=== PATIENT | male | born 1960 | race Caucasian/White ===

== ENCOUNTER 2017-05-04 15:38 | Emergency (ER) | payer SELFPAY ==
[2017-05-04 15:56] VITALS: BP 139/81
--- NOTE | 2017-05-04 16:27 | RAD ---
HISTORY: Right foot trauma, pain and swelling COMPARISONS: October 02, 2016 VIEWS: 3, Frontal, lateral, and oblique views of the right foot FINDINGS: BONE DENSITY: Normal. BONES: There is no displaced fracture. JOINTS: There is no arthropathy. ALIGNMENT: There is no dislocation. SOFT TISSUES: Unremarkable. OTHER FINDINGS: None. IMPRESSION: NO ACUTE OSSEOUS INJURY. IF SYMPTOMS PERSIST, RECOMMEND REPEAT IMAGING.
--- NOTE | 2017-05-04 16:49 | UC ---
reginald Banks Timothy, scribed for Annelise Lancaster MD on 05/04/17 at 1640 . Lower Extremity/Ankle HPI - HPI Summary HPI Summary: Jian Rivers is a 56 yo male presenting to [facility] with 10/10 sharp pain with palpation and swelling and redness between the 2nd and third toes on his right foot. Pt states 5 days ago was kicked on his foot by accident. Pt was barefoot and co-worked accidentally kicked him with wooden sandal 1 week ago. He noted some redness on the top of his foot progressive proximally. Warm to touch. No fevers, chills. + edema unable to wear shoe second to pain. He denies any cut of the skin. He denies fever, chills, N/V, immunosuppression. He denies Hx of MRSA. He self-medicated with ice and elevation, but notes that this caused the swelling to resolve but increased his pain. His MHx includes HTN. Pt medication list reviewed this visit. - History of Current Complaint Chief Complaint: UCLowerExtremity Stated Complaint: FOOT INJURY Time Seen by Provider: 05/04/17 16:32 Hx Obtained From: Patient Onset/Duration: Sudden Onset, Lasting Days, Still Present Severity Initially: Moderate Severity Currently: Moderate Pain Intensity: 10 - with palpation Pain Scale Used: 0-10 Numeric Aggravating Factor(s): Standing Alleviating Factor(s): Rest Able to Bear Weight: Yes - Risk Factors Gout Risk Factors: Age Over 40, Male - Allergies/Home Medications Allergies/Adverse Reactions: Allergies Allergy/AdvReac Type Severity Reaction Status Date / Time Kiwi Extract Allergy Unknown Verified 05/04/17 15:56 Reaction Details Latex Allergy Rash Verified 05/04/17 15:56 Pineapple Allergy Unknown Verified 05/04/17 15:56 Reaction Details Home Medications: Home Medications Amlodipine Besylate [Norvasc 10 mg tab] 10 mg PO DAILY 05/04/17 [History Confirmed 05/04/17] PMH/Surg Hx/FS Hx/Imm Hx Previously Healthy: Yes Cardiovascular History: Hypertension - Surgical History Surgical History: None - Family History Known Family History: Positive: Cardiac Disease - [place], Hypertension, Diabetes - Social History Occupation: Employed Full-time Lives: Alone Alcohol Use: Daily Substance Use Type: None Smoking Status (MU): Unknown if Ever Smoked Type: Smokeless Tobacco Review of Systems Constitutional: Negative Skin: Other - redness on the top of right foot Eyes: Negative ENT: Negative Respiratory: Negative Cardiovascular: Negative Gastrointestinal: Negative Genitourinary: Negative Motor: Negative Neurovascular: Negative Musculoskeletal: Other: - pain in RLE foot Neurological: Negative Psychological: Negative All Other Systems Reviewed And Are Negative: Yes Physical Exam Triage Information Reviewed: Yes Appearance: Well-Appearing, No Pain Distress Vital Signs: Initial Vital Signs Temp 98.8 F 05/04/17 15:52 Pulse 90 05/04/17 15:52 Resp 18 05/04/17 15:52 BP 139/81 05/04/17 15:52 Pulse Ox 100 05/04/17 15:52 Vital Signs Reviewed: Yes Eye Exam: Normal Eyes: Negative: Discharge ENT Exam: Normal ENT: Positive: Hearing grossly normal Neck exam: Normal Neck: Positive: Supple, Nontender Respiratory: Positive: Lungs clear, Normal breath sounds Cardiovascular: Positive: Other: - 2+ DP, PT Musculoskeletal: Positive: Other: - + SLE + flex/ext + flex/ext ankle Neurological Exam: Normal Neurological: Positive: Alert Psychological Exam: Normal Skin: Positive: Other - Additional Comments Right foot + erythema, warmth between 2/3 toes - extends to dorsum of foot. warm, well demarcated no open areas to skin although dryness between toes no crepitus, no induration Diagnostics - Radiology R foot XR Xray Interpretation: No Acute Changes - IMPRESSION: NO ACUTE OSSEOUS INJURY. IF SYMPTOMS PERSIST, RECOMMEND REPEAT IMAGING. Radiology Interpretation Completed By: Radiologist Lower Extremity Course/Dx - Course Course Of Treatment: Jian Rivers is a 56 yo male presenting to [facility] with 10/ 10 RLE foot pain with redness and swelling after being accidentally kicked in the foot one week ago while at work. Pt medication list reviewed this visit. His R foot XR suggests no acute osseus injury. - epsom salt soaks. elevate. doxy. motrin/apap. wound demarcated. recheck in 48 hours. return precautions discussed. Pt comfortable and in agreement with plan - Differential Dx/Diagnosis Differential Diagnosis/HQI/PQRI: Cellulitis Provider Diagnoses: RLE foot cellulitis Discharge - Discharge Plan Condition: Stable Disposition: HOME Prescriptions: DOXYcycline CAP(*) [DOXYcycline 100MG CAP(*)] 100 mg PO BID #20 cap Patient Education Materials: Cellulitis (ED), Crutch Instructions (ED) Forms: *Work Release Referrals: Yamel Dave MD [Primary Care Provider] - 1 Day Additional Instructions: - Soak your foot in epsom salt soaks for 20 minutes, 2-3 times a day - elevate your foot as much as possible to help with swelling and pain - take antibiotics as prescribed for pain - use crutches and support shoe until you can walk normally without a limp - you should have your wound rechecked in 2 days. REturn to urgent care of call your primary doctor - okay to alternate ibuprofen (advil, Motrin) and tylenol every 3 hours for pain - If you develop increased pain, swelling, fevers, red spreading - it is recommended you go to the emergency department for further testing and treatment The documentation as recorded by the reginald kim Timothy accurately reflects the service I personally performed and the decisions made by me, Annelise Lancaster MD.
== END 2017-05-04 17:04 | disposition home or self-care (01) ==
LOC: UCEAST 15:38
DX: L03.115 Cellulitis of right lower limb (principal); W50.1XXA Accidental kick by another person, initial encounter; Y93.9 Activity, unspecified; Y92.9 Unspecified place or not applicable; Y99.0 Civilian activity done for income or pay; I10 Essential (primary) hypertension
CPT/HCPCS: 99213; G0463

== ENCOUNTER 2017-05-06 15:42 | Emergency (ER) | payer SELFPAY ==
[2017-05-06 16:08] VITALS: BP 141/81
--- NOTE | 2017-05-06 17:55 | UC ---
Lower Extremity/Ankle HPI - HPI Summary HPI Summary: This is a 56 yo male who returned for re-evaluation after being seen 05/04/17 with R foot pain, erythema and swelling. He had a traumatic injury ~7 days ago , XRs were negative at that time. He was treated for a cellulitis and requested to be NWB. Patient has been compliant with antibiotics and NWB status. Erythema has improved significantly along with pain and swelling. No fevers or new complaints. - History of Current Complaint Chief Complaint: UCSkin Stated Complaint: RECHECK CELLULITIS - FOOT - Allergies/Home Medications Allergies/Adverse Reactions: Allergies Allergy/AdvReac Type Severity Reaction Status Date / Time Kiwi Extract Allergy Unknown Verified 05/06/17 16:08 Reaction Details Latex Allergy Rash Verified 05/06/17 16:08 Pineapple Allergy Unknown Verified 05/06/17 16:08 Reaction Details PMH/Surg Hx/FS Hx/Imm Hx Previously Healthy: Yes - Surgical History Surgical History: None - Family History Known Family History: Positive: Cardiac Disease - [place], Hypertension, Diabetes - Social History Alcohol Use: Daily Substance Use Type: None Smoking Status (MU): Current Every Day Smoker Type: Smokeless Tobacco Review of Systems Constitutional: Negative Skin: Rash Eyes: Negative ENT: Negative Respiratory: Negative Cardiovascular: Negative Gastrointestinal: Negative Genitourinary: Negative Motor: Negative Neurovascular: Negative Musculoskeletal: Negative Neurological: Negative Psychological: Negative All Other Systems Reviewed And Are Negative: Yes Physical Exam Triage Information Reviewed: Yes Appearance: Well-Appearing Vital Signs: Initial Vital Signs Temp 98.4 F 05/06/17 16:04 Pulse 98 05/06/17 16:04 Resp 12 05/06/17 16:04 BP 141/81 05/06/17 16:04 Pulse Ox 100 05/06/17 16:04 Vital Signs Reviewed: Yes Musculoskeletal: Positive: Other: - some TTP over R 2nd metatarsal head, FROM of toes Skin: Positive: Other - resolving erythema over the dorsum of the foot Lower Extremity Course/Dx - Course Course Of Treatment: This is a 56 yo gentleman who returns for recheck of R foot cellulitis. Patient given instructions to start WB as tolerated in surgical shoe or similar hard soled shoe. Return to work slip given for . - Differential Dx/Diagnosis Differential Diagnosis/HQI/PQRI: Fracture (Closed), Septic Arthritis, Sprain, Strain, Tendonitis Provider Diagnoses: 1. R foot cellulitis and contusion Discharge - Discharge Plan Condition: Stable Disposition: HOME Forms: *Work Release Referrals: Yamel Dave MD [Primary Care Provider] - If Needed Additional Instructions: Activity: weight bear in surgical shoe as tolerated Instructions: 1. Continue antibiotics as directed 2. Begin to walk short distances without the crutches, extend length of ambulation as tolerated
== END 2017-05-06 17:51 | disposition home or self-care (01) ==
LOC: UCEAST 15:42
DX: L03.115 Cellulitis of right lower limb (principal); S90.31XA Contusion of right foot, initial encounter; X58.XXXA Exposure to other specified factors, initial encounter; Y93.9 Activity, unspecified; Y92.9 Unspecified place or not applicable; Y99.9 Unspecified external cause status; Z72.0 Tobacco use
CPT/HCPCS: 99211; G0463

== ENCOUNTER → 2017-09-15 10:35 | Emergency (ER) | payer BC ==
[2017-09-15 11:03] VITALS: BP 134/85
--- NOTE | 2017-09-15 11:24 | RAD ---
INDICATION: Right elbow injury. TECHNIQUE: 4 views of the right elbow were obtained. FINDINGS: The bones are in normal alignment. No joint effusion is seen. There are are calcifications adjacent to the medial lateral epicondyles most consistent with calcific tendinitis. There is also a small calcific density adjacent to the coronoid process of the ulna measuring 2 mm in size possibly representing a small fracture fragment age indeterminate. There is mild to moderate osteoarthritic change in the medial compartment of the elbow. IMPRESSION: 1. SMALL CALCIFIC DENSITY ADJACENT TO THE CORONOID PROCESS OF THE ULNA POSSIBLY REPRESENTING A SMALL FRACTURE FRAGMENT, AGE INDETERMINATE. 2. CALCIFIC TENDINITIS. 3. [id number] OSTEOARTHRITIC CHANGE.
--- NOTE | 2017-09-15 11:57 | UC ---
Upper Extremity HPI - HPI Summary HPI Summary: Pt presents with right elbow pain. He tells me that last night he was walking in the dark and tripped over something on the ground - landed on his right elbow , did not hit his head. Has not taken anything for pain. Is here today with right elbow pain and swelling. Movement makes his pain worse. Sitting with his elbow flexed and adducted against his abdomen is a comfortable position for him. Denies previous injury, numbness, tingling, or open wounds. - History of Current Complaint Hx Obtained From: Patient Onset/Duration: Sudden Onset Severity Initially: Mild Severity Currently: Moderate Pain Intensity: 5 Pain Scale Used: 0-10 Numeric Character: Sharp, Aching Aggravating Factor(s): Movement Alleviating Factor(s): Rest <Eder Robb - Last Filed: 09/15/17 16:18> <Annelise Lancaster - Last Filed: 09/16/17 14:23> - History of Current Complaint Chief Complaint: UCLowerExtremity Stated Complaint: FALL/HURT R ELBOW Time Seen by Provider: 09/15/17 11:55 - Allergies/Home Medications Allergies/Adverse Reactions: Allergies Allergy/AdvReac Type Severity Reaction Status Date / Time Kiwi Extract Allergy Unknown Verified 09/15/17 10:57 Reaction Details Latex Allergy Rash Verified 09/15/17 10:57 Pineapple Allergy Unknown Verified 09/15/17 10:57 Reaction Details PMH/Surg Hx/FS Hx/Imm Hx Previously Healthy: Yes Cardiovascular History: Hypertension - Surgical History Surgical History: None - Family History Known Family History: Positive: Cardiac Disease - [place], Hypertension, Diabetes - Social History Occupation: Employed Full-time Lives: Alone Alcohol Use: Daily Substance Use Type: None Smoking Status (MU): Current Every Day Smoker Type: Smokeless Tobacco <Eder Robb - Last Filed: 09/15/17 16:18> Review of Systems Constitutional: Negative Skin: Negative Neurovascular: Negative Musculoskeletal: Decreased ROM - Right elbow, Edema - Right elbow Neurological: Negative Psychological: Negative All Other Systems Reviewed And Are Negative: Yes <Eder Robb - Last Filed: 09/15/17 16:18> Physical Exam Triage Information Reviewed: Yes Appearance: Well-Appearing, Well-Nourished Vital Signs: Initial Vital Signs Temp 99.0 F 09/15/17 10:56 Pulse 96 09/15/17 10:56 Resp 18 09/15/17 10:56 BP 134/85 09/15/17 10:56 Pulse Ox 99 09/15/17 10:56 Vital Signs Reviewed: Yes Neck: Positive: Supple, Nontender, No Lymphadenopathy Respiratory: Positive: Chest non-tender, Lungs clear, Normal breath sounds, No respiratory distress, No accessory muscle use Cardiovascular: Positive: RRR, No Murmur, Pulses Normal Musculoskeletal: Positive: Strength Limited @ - Right elbow with flexion and extension 3/5., ROM Limited @ - Right elbow, cannot fully extend due to pain., Edema @ - Posterior aspect of Right elbow - mild., Other: - TTP over coronoid process and olecranon process. FROM right wrist and all digits. Neurological: Positive: Alert, Other: - C3-T1 sensations intact. Sensations intact in right wrist and all digits. Psychological: Positive: Age Appropriate Behavior Skin: Negative: rashes, significant lesion(s) <Eder Robb - Last Filed: 09/15/17 16:18> Vital Signs: Initial Vital Signs Temp 99.0 F 09/15/17 10:56 Pulse 96 09/15/17 10:56 Resp 18 09/15/17 10:56 BP 134/85 09/15/17 10:56 Pulse Ox 99 09/15/17 10:56 <Annelise Lancaster - Last Filed: 09/16/17 14:23> Upper Extremity Course/Dx - Course Course Of Treatment: 1. SMALL CALCIFIC DENSITY ADJACENT TO THE CORONOID PROCESS OF THE ULNA POSSIBLY REPRESENTING A SMALL FRACTURE FRAGMENT, AGE INDETERMINATE. 2. CALCIFIC TENDINITIS. 3. [id number] OSTEOARTHRITIC CHANGE. Rx for elbow brace. Sling today. OOW this week. F/u with orthopedics JERE. He will take ibuprofen for pain. - Differential Dx/Diagnosis Differential Diagnosis/HQI/PQRI: Arthritis, Contusion, Fracture (Closed), Strain , Sprain Provider Diagnoses: Right elbow avulsion fracture <Eder Robb - Last Filed: 09/15/17 16:18> Discharge <Eder Robb - Last Filed: 09/15/17 16:18> <Annelise Lancaster - Last Filed: 09/16/17 14:23> - Discharge Plan Condition: Stable Disposition: HOME Prescriptions: Elastic Bandages & Supports [Elbow Support/Elastic/Fir] 1 mis XX DAILY #1 mis Patient Education Materials: Elbow Sprain (ED) Forms: *Work Release Referrals: Yamel Dave MD [Primary Care Provider] - Po Encarnacion MD [Medical Doctor] - Additional Instructions: Please keep your elbow in a sling for the next 24-48 hours. Please call orthopedics at the number below to schedule a follow up appointment. May take ibuprofen 600mg every 6 hours as needed for pain If you develop a fever, SOB, chest pain, new or worsening symptoms - please call your PCP or go to the ED. Attestation Statement User Type: Provider - I was available for consult. This patient was seen by the STEF. The patient was not presented to, seen by, or examined by me. -Ibrahima <Annelise Lancaster - Last Filed: 09/16/17 14:23>
== END | disposition home or self-care (01) ==
LOC: UCEAST 10:35
DX: S52.041A Displaced fracture of coronoid process of right ulna, initial encounter for closed fracture (principal); W01.0XXA Fall on same level from slipping, tripping and stumbling without subsequent striking against object, initial encounter; Y93.01 Activity, walking, marching and hiking; Y92.9 Unspecified place or not applicable; Y99.9 Unspecified external cause status; M65.231 Calcific tendinitis, right forearm; M19.021 Primary osteoarthritis, right elbow; Z72.0 Tobacco use
CPT/HCPCS: 99203; G0463